=== PATIENT | male | born 1995 | race Caucasian/White ===

== ENCOUNTER → 2018-08-22 | Outpatient (RCR) | payer OTHER | END | disposition home or self-care (01) | LOC: PT | DX: Z47.89 Encounter for other orthopedic aftercare (principal) ==

== ENCOUNTER 2018-08-29 14:01 | Outpatient (RCR) | payer OTHER | END 2018-08-29 14:30 | disposition home or self-care (01) | LOC: PT 14:01 | DX: Z47.89 Encounter for other orthopedic aftercare (principal) ==

== ENCOUNTER 2019-08-26 14:00 | Outpatient (RCR) | payer OTHER | END 2019-08-26 14:30 | disposition still patient (30) | LOC: OT 14:00 | DX: S62.511A Displaced fracture of proximal phalanx of right thumb, initial encounter for closed fracture (principal) ==